=== PATIENT | male | born 1950 | race African-American/Black ===

== ENCOUNTER 2016-05-18 03:04 | Emergency (ER) | payer MEDICARE, BC, OTHER ==
[~2016-05-18 03:04] MED LIST: ASAB PO; ATROVENTUD INH; BACDS PO; CAT1 PO; COMBIVENT RESPIM4 GM INH; GLUCPH PO; LIVALO2 MG PO; MCZ25 PO; NAP500 PO; NEUR100 PO; NITROSTAT0.4 MG SL; NORCO1 TA2 PO; P10 PO; PRILOSEC40 MG PO; PROVHFA INH; SPIRO25 PO; SYMBICORT 160/41 INH INH
[2016-05-18 04:02] LABS: BASOPHILS 0.2 %; BASOPHILS ABSOLUTE 0.01 10/3/uL (0.0-0.16); EOSINOPHILS 0 %; ER CBC TAT 0 Hrs 05 Mins; HEMATOCRIT 38.9 % (40.0-51.0); HEMOGLOBIN 12.8 g/dL (13.6-17.8); LYMPHOCYTES 33.1 %; LYMPHOCYTES ABSOLUTE 1.54 10/3/uL (0.67-4.30); MEAN CORPUS HGB CONC 32.9 g/dL (32.0-36.0); MEAN CORPUSCULAR HEMOGLOB 25.9 pg (26.0-34.0); MEAN PLATELET VOLUME 10.3 fL (9.2-13.0); MONOCYTES 17.8 %; MONOCYTES ABSOLUTE 0.83 10/3/uL (0.21-1.20); NEUTROPHILS 48.9 %; NEUTROPHILS ABSOLUTE 2.27 10/3/uL (2.02-8.40); PLATELET COUNT 205 10/3/uL (150-400); RED CELL COUNT 4.94 10/6/uL (4.7-6.1); WHITE BLOOD CELLS 4.7 10/3/uL (4.5-10.5)
[2016-05-18 04:03] LABS: MANUAL DIFF NO %; MEAN CORPUSCULAR VOLUME 78.7 fL (80-100)
[2016-05-18 04:06] LABS: ASCORBIC ACID (UR NOT ORDER) NEG (NEG); BILIRUBIN, URINE NEGATIVE (NEG); ER URINALYSIS TAT 0 Hrs 00 Mins; KETONE, URINE 20 MG/DL (NEG); LEUKOCYTE ESTERASE(NOT OR NEG (NEG); NITRITE (URINE) NEG (NEG); WBC (NOT ORDERED) (RFLEX) < 1 (0-5)
[2016-05-18 04:09] LABS: PROTIME (NOT ORD) 13.4 SEC (12.0-14.5)
[2016-05-18 04:10] LABS: PARTIAL THROMBO TIME 31.4 SEC (22.5-37.2)
[2016-05-18 04:21] LABS: ALBUMIN 3.6 G/DL (3.5-5.0); ALKALINE PHOSPHATASE 78 U/L (45-117); BUN (BLOOD UREA NITROGEN) 24 MG/DL (6-23); CALCIUM, SERUM 8.5 MG/DL (8.5-10.4); CHEST PAIN PROFILE TAT 0 Hrs 24 Mins; CHLORIDE, SERUM 106 MMOL/L (96-112); CO2 (CARBON DIOXIDE) 22 MMOL/L (24-34); CREATININE 1.46 MG/DL (0.70-1.30); DIRECT BILIRUBIN 0.1 MG/DL (0.0-0.4); GFR AFRICAN AMERICAN 57 ML/MIN (>=60); GFR NON AFRICAN AMERICAN 49 ML/MIN (>=60); GLUCOSE, SERUM 69 MG/DL (60-99); INDIRECT BILIRUBIN(NOT ORDER) 0.2 MG/DL (0.1-0.9); POTASSIUM, SERUM 4.3 MMOL/L (3.5-5.3); SGOT(AST) 24 U/L (5-40); SGPT(ALT) 26 U/L (5-65); SODIUM, SERUM 140 MMOL/L (135-148); TOTAL BILIRUBIN 0.3 MG/DL (0-1.2); TOTAL PROTEIN 7.6 G/DL (6.0-8.5); TROPONIN I <0.02 NG/ML (<0.05)
== END 2016-05-18 06:53 | disposition home or self-care (01) ==
LOC: ER 03:04
PROVIDERS: Nurse Practitioner Acute Care
DX: E86.0 Dehydration (principal); R53.1 Weakness; J44.9 Chronic obstructive pulmonary disease, unspecified; I10 Essential (primary) hypertension; K21.9 Gastro-esophageal reflux disease without esophagitis; E11.9 Type 2 diabetes mellitus without complications; Z79.82 Long term (current) use of aspirin; Z79.84 Long term (current) use of oral hypoglycemic drugs; Z79.899 Other long term (current) drug therapy
CPT/HCPCS: 71010; 74176; 80048; 80076; 81001; 83735; 84484; 85025; 85610; 85730; 93005; 99285